=== PATIENT | female | born 1955 | race Caucasian/White ===

== ENCOUNTER 2016-06-12 16:07 | Emergency (ER) | payer OTHER ==
[2016-06-12] MEDS ORDERED: RX INFO: IV CONTRAST WAS GIVEN 1 EACH MISC MISCELLANE PRN (16:23)
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
[2016-06-12 16:44] LABS: Appearance,Urine Clear (Clear); Bilirubin,Urine Negative (Negative); Glucose,Urine (UA) Negative (Negative); Ketones,Urine Negative (Negative); Leukocyte Esterase,Urine Negative (Negative); Nitrite,Urine Negative (Negative); PH, Urine 5.5 (5.0-8.0); Protein,Urine Negative (Negative); Specific Gravity,Urine 1.006 (1.001-1.035); UA Billing (MACRO vs. MICRO) CHEM; Urobilinogen,Urine <2.0 mg/dL (<2.0)
[2016-06-12 16:55] LABS: ALT 56 U/L (9-52); AST 73 U/L (14-36); Anion Gap 13 mmol/L; Blood Urea Nitrogen 21 mg/dL (7-17); Calcium 9.4 mg/dL (8.4-10.2); Carbon Dioxide 25 mmol/L (22-30); Chloride 105 mmol/L (98-107); Glucose 104 mg/dL (74-99); Non-African American GFR(MDRD) >60 (>60 ml/min/1.73 sqM); Potassium 3.7 mmol/L (3.5-5.1); Sodium 143 mmol/L (137-145)
[2016-06-12 17:04] LABS: Partial Thromboplastin Time 22.2 sec (22.0-30.0); Prothrombin Time 10.6 sec (9.0-12.0)
[2016-06-12 17:15] LABS: Anisocytosis Slight; CH 26.8; CHCM 32.4; HDW 3.47; HGB 12.5 gm/dL (11.4-16.0); Hypochromasia Slight; Immature Gran Flag Marked; MCH 26.6 pg (25.0-35.0); MCV 83.2 fL (80.0-100.0); Mean Platelet Volume 7.9; Poikilocytosis Slight; RBC 4.69 m/uL (3.80-5.40); RDW 17.6 % (11.5-15.5); WBC (Perox) 4.58
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
[2016-06-12 17:42] LABS: Add Differential Manual Differential
[2016-06-12 17:49] LABS: Blast Cells 0.5; Myelocytes % 4.5 %; Nucleated Red Blood Cells 3 /100 WBC (0-0); Total Cells Counted 200
[2016-06-12 17:50] LABS: Manual Review Performed; Polychromasia Present; Tear Drop Cells Present; WBC 4.1 k/uL (3.8-10.6)
[2016-06-12 18:13] VITALS: RESP 18
[2016-06-12] MEDS ORDERED: SODIUM CHLORIDE 0.9% 1,000 ML IV STA (18:13)
[2016-06-12 18:31] VITALS: BP 158/82; PULSE 104; TEMP 98
== END 2016-06-12 18:37 | disposition other institution (70) ==
LOC: EC 16:07
DX: S36.039A Unspecified laceration of spleen, initial encounter (principal); R16.1 Splenomegaly, not elsewhere classified; V49.49XA Driver injured in collision with other motor vehicles in traffic accident, initial encounter; Z79.899 Other long term (current) drug therapy; Z88.1 Allergy status to other antibiotic agents; E07.9 Disorder of thyroid, unspecified; Z87.891 Personal history of nicotine dependence
CPT/HCPCS: 36415; 86900; 86901; 80048; 83690; 84450; 84460; 85025; 85610; 85730; 86850; 81003; 74177; 99285; 96360; Q9967

== ENCOUNTER 2016-06-27 14:27 | Emergency (ER) | payer OTHER ==
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
[2016-06-27 15:15] LABS: Anisocytosis Slight; CH 26.7; CHCM 32.5; HCT 36.9 % (34.0-46.0); HDW 3.55; HGB 11.8 gm/dL (11.4-16.0); Hypochromasia Slight; MCH 26.6 pg (25.0-35.0); Mean Platelet Volume 8.1; Poikilocytosis Slight; RBC 4.45 m/uL (3.80-5.40); RDW 17.6 % (11.5-15.5); WBC (Perox) 11.05
[2016-06-27 15:48] LABS: Add Differential Manual Differential
[2016-06-27 15:53] LABS: Metamyelocytes % 5.5 %; Nucleated Red Blood Cells 2 /100 WBC (0-0); Total Cells Counted 200
[2016-06-27 15:54] LABS: Polychromasia Present; Tear Drop Cells Present; WBC 4.1 k/uL (3.8-10.6)
[2016-06-27 16:01] VITALS: BP 135/70; PULSE 70; RESP 16; TEMP 97
[2016-06-27 17:15] LABS: Appearance,Urine Clear (Clear); Bilirubin,Urine Negative (Negative); Glucose,Urine (UA) Negative (Negative); Ketones,Urine Negative (Negative); Leukocyte Esterase,Urine Negative (Negative); Nitrite,Urine Negative (Negative); PH, Urine 6.5 (5.0-8.0); Protein,Urine Negative (Negative); Specific Gravity,Urine 1.002 (1.001-1.035); UA Billing (MACRO vs. MICRO) CHEM; Urobilinogen,Urine <2.0 mg/dL (<2.0)
== END 2016-06-27 16:01 | disposition home or self-care (01) ==
LOC: EC 14:27
DX: R19.7 Diarrhea, unspecified (principal); E07.9 Disorder of thyroid, unspecified; Z86.2 Personal history of diseases of the blood and blood-forming organs and certain disorders involving the immune mechanism; Z87.19 Personal history of other diseases of the digestive system; Z87.891 Personal history of nicotine dependence; Z79.52 Long term (current) use of systemic steroids; Z79.899 Other long term (current) drug therapy; Z88.1 Allergy status to other antibiotic agents; Z90.49 Acquired absence of other specified parts of digestive tract; Z90.710 Acquired absence of both cervix and uterus
CPT/HCPCS: 36415; 81003; 85025; 99284

== ENCOUNTER → 2016-06-30 | Outpatient (CLI) | payer OTHER | END | disposition home or self-care (01) | LOC: LABWHC1 08:09 | PROVIDERS: ATTEND Emergency Medicine | DX: R19.7 Diarrhea, unspecified (principal) | CPT/HCPCS: 80299; 87045; 87046 ==

== ENCOUNTER 2016-08-06 08:38 | Day surgery (SDC) | payer OTHER ==
[2016-08-04 10:36] VITALS: BMI 19.3
[~2016-08-06 08:38] MED LIST: LACTATED RINGERS 1,000 ML IV SCH
[2016-08-06 08:59] VITALS: RESP 16; TEMP 97.3
[2016-08-06] MEDS ORDERED: LIDOCAINE 1% 20 ML VIAL (10MG/ML) FOR IV START INTRADERMA ONE (09:11)
[2016-08-06] MEDS ORDERED: PROPOFOL 10 MG/ML 20 ML VIAL IV ONE (09:40)
[2016-08-06] MEDS ORDERED: LIDOCAINE 1% INJ 10MG/ML (20 ML MDV) ONE (09:40)
--- NOTE | 2016-08-06 10:07 | P.PCN ---
Date of Procedure: 08/06/16 Procedure(s) Performed: BRIEF HISTORY: Patient is a 61-year-old pleasant white female, scheduled for an elective colonoscopy as a part of surveillance of colorectal neoplasia. Her last colonoscopy was in July 2015 and was noted to have cecal mass for which she underwent right hemicolectomy. Lately she is been having occasional diarrhea. PROCEDURE PERFORMED: Colonoscopy. PREOPERATIVE DIAGNOSIS: Surveillance of colon cancer status post right colectomy July 2015. IV sedation per Anesthesia. PROCEDURE: After informed consent was obtained, the patient, was brought into the endoscopy unit. IV conscious sedation was administered by Anesthesia under continuous monitoring. Initially the Olympus CF-160 flexible video colonoscope was then inserted in the rectum, gradually advanced into the right colon be the ileocolonic anastomosis was visualized and appeared normal. The anastomosis was widely patent. The mucosa of the ascending colon, transverse colon, descending colon, sigmoid colon, and rectum appeared normal. Retroflexion was performed in the rectum and no lesions were seen. The patient tolerated the procedure well. IMPRESSION: Normal-appearing colon from rectum to ileocolonic anastomosis of the right side with no evidence of colorectal neoplasia RECOMMENDATIONS: Findings of this examination were discussed with the patient as well as family. She was advised to have a repeat surveillance colonoscopy in 2-3 years.
[2016-08-06 10:40] VITALS: BP 138/82; PULSE 74
--- NOTE | 2016-08-20 11:45 | CDI ---
There is a conflict regarding the sedation used during the procedure. Your procedure note states "IV conscious sedation was administered by Anesthesia", but the Anesthesia Record indicates General Anesthesia. Which type of sedation/ anesthesia was used during the procedure? Please clarify and document as an addendum to your op report. This information is needed for proper coding and billing. If you dont understand what is needed from you, please contact my medical billing and coding instructor, Odalys Laguerre at [phone]. Thank you. MALCOM Dc
--- NOTE | 2016-09-08 13:39 | CDI ---
There is a conflict regarding the sedation used during the procedure. Your procedure note states "IV conscious sedation was administered by Anesthesia", but the Anesthesia Record indicates General Anesthesia. Which type of sedation/ anesthesia was used during the procedure? Please clarify and document as an addendum to your op report. This information is needed for proper coding and billing. If you don't understand what is needed from you, please contact my park manager, Odalys Laguerre at [phone]. Thank you. MALCOM Dc
--- NOTE | 2016-09-19 14:15 | CDI ---
There is a conflict regarding the sedation used during the procedure. Your procedure note states "IV conscious sedation was administered by Anesthesia", but the Anesthesia Record indicates General Anesthesia. Which type of sedation/ anesthesia was used during the procedure? Please clarify and document as an addendum to your op report. This information is needed for proper coding and billing. If you dont understand what is needed from you, please contact my cable installation manager, Odalys Laguerre at [phone]. Thank you. RADHA
--- NOTE | 2016-09-24 11:52 | PCN ---
DATE OF SERVICE: 08/06/2016 ADDENDUM: General anesthesia was utilized instead of IV conscious sedation.
== END 2016-08-06 10:50 | disposition home or self-care (01) ==
LOC: ORWHC2ENDO 08:38
PROVIDERS: ATTEND Internal Medicine Gastroenterology
DX: C18.9 Malignant neoplasm of colon, unspecified (principal); Z90.49 Acquired absence of other specified parts of digestive tract; R19.7 Diarrhea, unspecified; E07.9 Disorder of thyroid, unspecified; Z79.899 Other long term (current) drug therapy; Z88.1 Allergy status to other antibiotic agents
CPT/HCPCS: 45378; J2001; J2704

== ENCOUNTER → 2017-06-01 | Outpatient (CLI) | payer BC ==
--- NOTE | 2017-06-02 09:57 | ECHOF ---
Referral Reason:I35.0 Nonrheumatic Aortic (Valve) Stenosis MEASUREMENTS -------- HEIGHT: 170.2 cm WEIGHT: 58.1 kg BP: IVSd: 1.2 cm (0.6 - 1.1) LVIDd: 4.1 cm (3.9 - 5.3) LVPWd: 1.5 cm (0.6 - 1.1) IVSs: 1.5 cm LVIDs: 2.4 cm LVPWs: 1.6 cm LAESV Index (A-L): 29.70 ml/m Ao Diam: 2.1 cm (2.0 - 3.7) AV Cusp: 1.6 cm (1.5 - 2.6) LA Diam: 3.4 cm (2.7 - 3.8) MV EXCURSION: 5.640 mm (> 18.000) MV EF SLOPE: 56 mm/s (70 - 150) EPSS: 0.7 cm MV E Terrell: 0.75 m/s MV DecT: 220 ms MV A Terrell: 1.10 m/s MV E/A Ratio: 0.69 AV maxP.35 mmHg AV meanP.06 mmHg AR PHT: 268 ms RAP: 15.00 mmHg RVSP: 38.70 mmHg FINDINGS -------- Sinus rhythm. This was a technically good study. The left ventricular size is normal. There is mild concentric left ventricular hypertrophy. Overa ll left ventricular systolic function is normal with, an EF between 55 - 60 %. The right ventricle is normal in size and function. LA is midly dilated 29-33ml/m2. The right atrium is normal in size. Aortic valve is trileaflet and is mildly thickened. There is mild aortic regurgitation. There is mild aortic stenosis present. Peak/mean gradient across the Aortic Valve is 22.35mmHg / 15.06mmHg. Can't exclude possible Bicuspid Aov. The mitral valve leaflets are mildly thickened. Mild mitral annular calcification present. There is trace mitral regurgitation. Trace tricuspid regurgitation present. There is borderline pulmonary hypertension. The right vent ricular systolic pressure, as measured by Doppler, is 38.70mmHg. Pulmonic valve appears structurally normal. The aortic root size is normal. The inferior vena cava is mildly dilated. The pericardium is normal. CONCLUSIONS -------- 1. Sinus rhythm. 2. This was a technically good study. 3. The left ventricular size is normal. 4. There is mild concentric left ventricular hypertrophy. 5. Overall left ventricular systolic function is normal with, an EF between 55 - 60 %. 6. The right ventricle is normal in size and function. 7. LA is midly dilated 29-33ml/m2. 8. The right atrium is normal in size. 9. Aortic valve is trileaflet and is mildly thickened. 10. There is mild aortic regurgitation. 11. There is mild aortic stenosis present. 12. Peak/mean gradient across the Aortic Valve is 22.35mmHg / 15.06mmHg. 13. Can't exclude possible Bicuspid Aov. 14. The mitral valve leaflets are mildly thickened. 15. Mild mitral annular calcification present. 16. There is trace mitral regurgitation. 17. Trace tricuspid regurgitation present. 18. There is borderline pulmonary hypertension. 19. The right ventricular systolic pressure, as measured by Doppler, is 38.70mmHg. 20. Pulmonic valve appears structurally normal. 21. The aortic root size is normal. 22. The inferior vena cava is mildly dilated. 23. The pericardium is normal. CASE INVESTIGATOR: Marie Jane RDCS
== END | disposition home or self-care (01) ==
LOC: RADECHMAIN 16:12
PROVIDERS: ATTEND Internal Medicine
DX: I35.1 Nonrheumatic aortic (valve) insufficiency (principal); I34.8 Other nonrheumatic mitral valve disorders; I27.20 Pulmonary hypertension, unspecified; I51.7 Cardiomegaly
CPT/HCPCS: 93306

== ENCOUNTER → 2017-09-28 | Outpatient (CLI) | payer BC ==
--- NOTE | 2017-09-28 09:24 | BD ---
EXAMINATION TYPE: Axial Bone Density DATE OF EXAM: 09/28/2017 COMPARISON: NONE CLINICAL HISTORY: osteoporosis Height: 5'6 Weight: 127 FRAX RISK QUESTIONS: History of Fracture in Adulthood: y RISK FACTORS HISTORY OF: Family History of Osteoporosis: y Postmenopausal woman: y Take estrogen and/or progesterone medications: y How lon years MEDICATIONS: Thyroid Medications: Which medication: Synthroid How Lon years Additional Medications: colon meds, Additional History: colon cancer , 2016, EXAM MEASUREMENTS: Bone mineral densitometry was performed using the [employer]) System. Bone mineral density as measured about the Lumbar spine is: ----- L1-L4(G/cm2): 1.254 T Score Values are as follows: ----- L2: 0.5 ----- L3: 0.9 ----- L4: 0.5 ----- L1-L4: 0.6 Bone mineral density about the R hip (g/cm2): 1.004 Bone mineral density about the L hip (g/cm2): 1.062 T Score values are as follows: -----R Neck: -0.2 -----L Neck: -0.2 -----R Total: 0.5 -----L Total: 0.5 IMPRESSION: Normal (Values between +1 and -1 indicate normal bone mass). Consider repeating this study in 5 year s or sooner if there is some new clinical indication. NOTE: T-SCORE=SD OF THE YOUNG ADULT MEAN.
== END | disposition home or self-care (01) ==
LOC: RADBDWWP 07:05
PROVIDERS: ATTEND Internal Medicine
DX: M81.0 Age-related osteoporosis without current pathological fracture (principal)
CPT/HCPCS: 77080

== ENCOUNTER 2018-03-12 15:13 | Emergency (ER) | payer BC ==
[2018-03-12 15:30] VITALS: RESP 18
--- NOTE | 2018-03-12 16:31 | ED ---
General Adult HPI - General Chief complaint: Extremity Injury, Lower Stated complaint: Knee Injury Time Seen by Provider: 03/12/18 15:36 Source: patient, RN notes reviewed Mode of arrival: ambulatory Limitations: no limitations - History of Present Illness Initial comments: Patient is a 62 year old female with history of essential thrombocythemia with complaint of right knee and right calf pain and swelling after she fell 4 days ago. She tripped and hit her knee. She then drove to [place] from [place]. She went to [facility] where she reports that they took an x-ray and was told she has a contusion to her knee, but she is worried she might have a blood clot. She has never had a blood clot before. She does use Estrace cream. No other hormone use. No recent surgeries or bed rest. She reports that her platelet count has been normal. Patient denies head trauma, loss of consciousness, fever, chills, shortness of breath, chest pain, back pain, abdominal pain, numbness or tingling, headaches or visual changes, or any other complaints. - Related Data Home Medications Medication Instructions Recorded Confirmed Levothyroxine Sodium [Synthroid] 125 mcg PO QAM 07/27/15 08/06/16 Multivitamins, Thera [Multivitamin 1 tab PO AC-SUPPER 07/27/15 08/06/16 (formulary)] Estradiol Cream [Estrace Cream 1 applic VAGINAL WESA 08/01/15 08/06/16 0.01%] Glucosamine/Chondr Eckert A Sod [Osteo 1 tab PO AC-SUPPER 08/01/15 08/06/16 Bi-Flex Caplet] Calcium Carbonate [Calcium] 600 mg PO AC-SUPPER 06/27/16 08/06/16 Folic Acid 0.8 mg PO AC-SUPPER 06/27/16 08/06/16 Allergies Allergy/AdvReac Type Severity Reaction Status Date / Time erythromycin base Allergy Rash/Hives Verified 03/12/18 15:30 Review of Systems ROS Statement: Those systems with pertinent positive or pertinent negative responses have been documented in the HPI. ROS Other: All systems not noted in ROS Statement are negative. Past Medical History Past Medical History: Cancer, Thyroid Disorder Additional Past Medical History / Comment(s): heart murmur; enl. spleen/ platelet disorder/anemia, spleen laceration History of Any Multi-Drug Resistant Organisms: None Reported Past Surgical History: Breast Surgery, Cholecystectomy, Hysterectomy, Tonsillectomy Additional Past Surgical History / Comment(s): colonoscopy Past Anesthesia/Blood Transfusion Reactions: No Reported Reaction Past Psychological History: No Psychological Hx Reported Smoking Status: Former smoker - Past Family History Mother Family Medical History: No Reported History General Exam Limitations: no limitations General appearance: alert, in no apparent distress Head exam: Present: atraumatic, normocephalic Eye exam: Present: normal appearance Respiratory exam: Present: normal lung sounds bilaterally Cardiovascular Exam: Present: regular rate, normal rhythm, other (DP and PT pulses palpable and strong bilaterally.) Extremities exam: Present: full ROM, normal capillary refill, joint swelling ( Mild right ankle swelling.), calf tenderness (Right calf tenderness to palpation.), other (No tenderness of the right knee with palpation.) Neurological exam: Present: alert, oriented X3 Psychiatric exam: Present: normal affect, normal mood Skin exam: Present: warm, dry, normal color (No erythema over calves.) Course Vital Signs 03/12/18 15:28 Temperature 97.7 F Pulse Rate 78 Respiratory 18 Rate Blood Pressure 160/80 O2 Sat by Pulse 98 Oximetry Medical Decision Making - Medical Decision Making This is a 62 year old female with right calf pain after she fell and hit her knee. She reports that she has had an x-ray taken of her right knee, which had a contusion. US Venous Doppler Duplex of the right lower extremity was negative for DVT. Case discussed in detail with attending physician Dr. Nolan. Disposition Clinical Impression: Pain of right calf Disposition: HOME SELF-CARE Condition: Good Instructions: Knee Pain (ED) Additional Instructions: Follow up with PCP in 2 days. Return to emergency department if symptoms worsen or any other concerns. Is patient prescribed a controlled substance at d/c from ED?: No Referrals: Saulo Kim MD [Primary Care Provider] - 1-2 days Time of Disposition: 18:14
--- NOTE | 2018-03-12 17:53 | US ---
EXAMINATION TYPE: US venous doppler duplex LE RT DATE OF EXAM: 03/12/2018 5:40 PM COMPARISON: NONE CLINICAL HISTORY: Pain. SIDE PERFORMED: Right TECHNIQUE: The lower extremity deep venous system is examined utilizing real time linear array sonog makeda with graded compression, doppler sonography and color-flow sonography. VESSELS IMAGED: External Iliac Vein (EIV) Common Femoral Vein Deep Femoral Vein Greater Saphenous Vein * Femoral Vein Popliteal Vein Small Saphenous Vein * Proximal Calf Veins (* superficial vessels) Right Leg: Negative for DVT IMPRESSION: No evidence of deep venous thrombosis in the right leg.
[2018-03-12 18:53] VITALS: BP 150/70; PULSE 82; TEMP 97
== END 2018-03-12 18:52 | disposition home or self-care (01) ==
LOC: EC 15:13
DX: M79.661 Pain in right lower leg (principal); M79.89 Other specified soft tissue disorders; M25.561 Pain in right knee; E07.9 Disorder of thyroid, unspecified; D64.9 Anemia, unspecified; Z87.891 Personal history of nicotine dependence; Z88.1 Allergy status to other antibiotic agents; Z79.899 Other long term (current) drug therapy
CPT/HCPCS: 99283

== ENCOUNTER → 2018-06-14 | Outpatient (CLI) | payer BC ==
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
--- NOTE | 2018-06-14 18:21 | ECHOF ---
Referral Reason:R16.1 Splenomegaly,I35 Nonrheumatic aortic valve MEASUREMENTS -------- HEIGHT: 167.6 cm WEIGHT: 56.2 kg BP: IVSd: 1.2 cm (0.6 - 1.1) LVIDd: 4.1 cm (3.9 - 5.3) LVPWd: 1.4 cm (0.6 - 1.1) IVSs: 1.7 cm LVIDs: 2.1 cm LVPWs: 1.8 cm RVIDd: 2.6 cm (< 3.3) LAESV Index (A-L): 27.51 ml/m Ao Diam: 1.9 cm (2.0 - 3.7) LA Diam: 3.4 cm (2.7 - 3.8) AV Cusp: 1.2 cm (1.5 - 2.6) EPSS: 0.2 cm MV E Terrell: 0.74 m/s MV DecT: 260 ms MV A Terrell: 0.88 m/s MV E/A Ratio: 0.84 AV maxP.91 mmHg AV meanP.91 mmHg AR PHT: 221 ms RAP: 5.00 mmHg RVSP: 21.28 mmHg MV EF SLOPE: 96.95 mm/s (70 - 150) MV EXCURSION: 18.61 mm (> 18.000) FINDINGS -------- Sinus rhythm. This was a technically good study. The left ventricular size is normal. There is mild concentric left ventricular hypertrophy. Overa ll left ventricular systolic function is normal with, an EF between 55 - 60 %. The right ventricle is normal in size and function. The left atrial size is normal. The right atrium is normal in size. Aortic valve is trileaflet and is moderately thickened. There is mild aortic regurgitation. There is mild to mod aortic stenosis present. Peak/mean gradient across the Aortic Valve is 30.91mmHg / 1 7.91mmHg. Can't exclude possible Bicuspid Aov. The mitral valve leaflets are mildly thickened. Mild mitral regurgitation is present. Mild tricuspid regurgitation present. The right ventricular systolic pressure, as measured by Doppl er, is 21.28mmHg. Pulmonic valve appears structurally normal. The aortic root size is normal. Normal inferior vena cava with normal inspiratory collapse consistent with estimated right atrial pre ssure of 5 mmHg. The pericardium is normal. CONCLUSIONS -------- 1. Sinus rhythm. 2. This was a technically good study. 3. The left ventricular size is normal. 4. There is mild concentric left ventricular hypertrophy. 5. Overall left ventricular systolic function is normal with, an EF between 55 - 60 %. 6. The right ventricle is normal in size and function. 7. The left atrial size is normal. 8. The right atrium is normal in size. 9. Aortic valve is trileaflet and is moderately thickened. 10. There is mild aortic regurgitation. 11. There is mild to mod aortic stenosis present. 12. Peak/mean gradient across the Aortic Valve is 30.91mmHg / 17.91mmHg. 13. Can't exclude possible Bicuspid Aov. 14. The mitral valve leaflets are mildly thickened. 15. Mild mitral regurgitation is present. 16. Mild tricuspid regurgitation present. 17. The right ventricular systolic pressure, as measured by Doppler, is 21.28mmHg. 18. Pulmonic valve appears structurally normal. 19. The aortic root size is normal. 20. Normal inferior vena cava with normal inspiratory collapse consistent with estimated right atrial pressure of 5 mmHg. 21. The pericardium is normal. SVP: Marie Jane RDCS
== END | disposition home or self-care (01) ==
LOC: RADECHMAIN 13:38
PROVIDERS: ATTEND Internal Medicine
DX: I08.3 Combined rheumatic disorders of mitral, aortic and tricuspid valves (principal); N20.0 Calculus of kidney; R16.1 Splenomegaly, not elsewhere classified
CPT/HCPCS: 76700; 93306

== ENCOUNTER → 2018-07-05 | Outpatient (CLI) | payer BC ==
--- NOTE | 2018-07-06 05:05 | CT ---
EXAMINATION TYPE: CT abdomen w con DATE OF EXAM: 07/05/2018 COMPARISON: Ultrasound 06/14/[address] 06/12/2016 HISTORY: 63-year-old female Splenomegaly. TECHNIQUE: Contiguous axial scanning of the abdomen and pelvis following administration of 100 ml Iso bowen 300 IV contrast. Delayed images through the kidneys and coronal/sagittal reconstructions perform ed. CT DLP: 309 mGycm Automated exposure control for dose reduction was used. FINDINGS: Heart normal size without pericardial effusion. Lung bases clear without pleural effusion. The liver is enlarged measuring 20.1 cm. There is also large caliber to the main portal vein at 1.9 c m in the splenic vein adult 2.0 cm. The portal venous system appears patent. Cholecystectomy clips. No biliary ductal dilatation seen. Adrenal glands, kidneys, and pancreas show no gross abnormality. Some surgical changes in the region of the ileocecal junction. The spleen is severely enlarged measuring up to 26.3 cm craniocaudal. A rounded enhancing soft tissue nodule anteriorly and laterally at the mid aspect measures 3.4 cm, not significantly changed from . At that time, the spleen measured 25.0 cm. The previously seen inferior pole lacerations hav e healed. No dilated small bowel, free fluid, or free air. No evident mesenteric or retroperitoneal lymphadenop athy. Bones: Diffuse heterogeneity of the osseous structures is unchanged. IMPRESSION: 1. SEVERE SPLENOMEGALY AT 26.3 CM STABLE TO SLIGHTLY INCREASED FROM 06/12/2016 (25.0 CM). 2. STABLE ENHANCING ROUND 2.4 CM SOFT TISSUE NODULE/MASS ALONG THE ANTEROLATERAL MID POLE OF THE SPLE EN. THE PREVIOUS LOWER POLE LACERATIONS HAVE HEALED. NO ACUTE SPLENIC INJURY IDENTIFIED AT THIS TIME. 3. HEPATOMEGALY (20.1 CM). 4. LARGE CALIBER TO THE PORTAL VENOUS SYSTEM SUGGESTS UNDERLYING PORTAL VENOUS HYPERTENSION. 5. STABLE DIFFUSE HETEROGENEITY OF THE OSSEOUS STRUCTURES. CORRELATE TO ANY KNOWN ETIOLOGY. METABO LIC AND INFILTRATIVE PROCESSES ARE IN THE DIFFERENTIAL.
== END | disposition home or self-care (01) ==
LOC: RADCTMAIN 15:24
PROVIDERS: ATTEND Internal Medicine
DX: D73.89 Other diseases of spleen (principal); R16.2 Hepatomegaly with splenomegaly, not elsewhere classified
CPT/HCPCS: 74160; Q9967

== ENCOUNTER → 2018-07-30 | Day surgery (SDC) | payer BC ==
[2018-07-28 09:35] VITALS: BMI 18.8
[~2018-07-30] MED LIST changes: +LIDOCAINE 1% 20 ML VIAL (10MG/ML) FOR IV START INTRADERMA PRN; +LIDOCAINE 1% INJ 10MG/ML (20 ML MDV) ONE; +PROPOFOL 10 MG/ML 20 ML VIAL IV ONE
[2018-07-30 08:56] VITALS: RESP 16; TEMP 98.4
--- NOTE | 2018-07-30 09:36 | P.PCN ---
Date of Procedure: 07/30/18 Procedure(s) Performed: BRIEF HISTORY: Patient is a 63-year-old pleasant female, scheduled for an elective colonoscopy as a part of surveillance of prior history of colon cancer diagnosed in July 2015 and is status post right hemicolectomy. PROCEDURE PERFORMED: Colonoscopy. PREOPERATIVE DIAGNOSIS: Surveillance of colon cancer. IV sedation per Anesthesia. PROCEDURE: After informed consent was obtained, the patient, was brought into the endoscopy unit. IV sedation was administered by Anesthesia under continuous monitoring. Digital rectal examination was normal. Initially the Olympus CF-160 flexible video colonoscope was then inserted in the rectum, gradually advanced into the cecum without any difficulty. Careful examination was performed as the scope was gradually being withdrawn. Ileocecal valve and the appendiceal orifice were visualized and appeared normal. Prep was excellent. Mucosa of the cecum, ascending colon, transverse colon, descending colon, sigmoid colon, and rectum appeared normal. Small internal hemorrhoids Retroflexion was performed in the rectum and no lesions were seen. The patient tolerated the procedure well. IMPRESSION: Normal-appearing colon from rectum to cecum with no evidence of colorectal neoplasia. Small internal hemorrhoids. RECOMMENDATIONS: Findings of this examination were discussed with the patient as well as her family. She was advised to have a repeat surveillance colonoscopy in 3 years.
[2018-07-30 09:57] VITALS: BP 123/68; PULSE 75
== END ==
LOC: ORWHC2ENDO 08:05
PROVIDERS: ATTEND Internal Medicine Gastroenterology
DX: Z12.11 Encounter for screening for malignant neoplasm of colon (principal); K64.8 Other hemorrhoids; Z85.038 Personal history of other malignant neoplasm of large intestine; Z90.49 Acquired absence of other specified parts of digestive tract; E07.9 Disorder of thyroid, unspecified; Z87.891 Personal history of nicotine dependence; Z79.890 Hormone replacement therapy; Z79.899 Other long term (current) drug therapy; Z88.1 Allergy status to other antibiotic agents
CPT/HCPCS: J2001; J2704; G0105

== ENCOUNTER → 2018-08-12 | Outpatient (CLI) | payer BC ==
--- NOTE | 2018-08-12 10:13 | CT ---
EXAMINATION TYPE: CT angio chest DATE OF EXAM: 08/12/2018 COMPARISON: 08/01/2015 and 08/01/2015 HISTORY: 63-year-old female Thoracic aortic aneurysm TECHNIQUE: Contiguous axial scanning of the chest performed with IV Contrast, patient injected with 1 00 mL of Isovue 370. Coronal/sagittal MIP reconstructions performed. 3-D reconstructions generated on a dedicated independent workstation. CT DLP: 182.5 mGycm Automated exposure control for dose reduction was used. FINDINGS: Heart normal size without pericardial. The aortic root measures 2.6 cm. Proximal ascending aorta measures 3.0 cm. Proximal arch measures 3.1 cm. Conventional arterial vessel branching anatomy. Upper descending thoracic aorta measures 2.8 cm. There seems to be bilateral accessory renal arteries. Dilated splenic artery. No evidence for aortic dissection. No thoracic lymphadenopathy by CT size criteria. No consolidation or pleural effusion. Massive enlargement of the spleen is redemonstrated. Mottled enhancement compatible with arterial pha se imaging. However, there is a round 2.9 cm hypodense area anteriorly at the upper to mid pole not w ell seen on 07/05/2018 or 08/01/2015. An additional partially visualized hypodense area posteriorly and inferiorly measures 4.5 cm versus 1.8 cm on 08/01/2015 and in retrospect possibly measuring 3.3 cm on 07/05/2018, again, not well seen. Bones: Heterogeneous density of the osseous structures redemonstrated. IMPRESSION: 1. NO EVIDENCE FOR THORACIC AORTIC ANEURYSM. NO AORTIC DISSECTION. 2. NO ACUTE PULMONARY PROCESS. 3. MASSIVE ENLARGEMENT OF THE SPLEEN REDEMONSTRATED, ONLY PARTIALLY VISUALIZED ON THE PRESENT STUDY. THERE ARE A COUPLE ROUND HYPODENSE LESIONS MEASURING UP TO 4.5 CM, NOT WELL-SEEN ON THE 07/05/2018 STUDY AND MAY BE LARGER FROM 08/01/2015. CORRELATE FOR ANY KNOWN DIAGNOSIS THIS SPLENOMEGALY SEEMS TO BE A LONG-STANDING PROCESS. CONSIDER HEME-ONC REFERRAL FOR FURTHER WORKUP IF NO ESTABLISHED DIAGN OSIS. GIVEN THE UNDERLYING HYPODENSE LESIONS, CORRELATE TO EXCLUDE THE POSSIBILITY OF LYMPHOMA. 4. HETEROGENEOUS APPEARANCE TO THE OSSEOUS STRUCTURES ALSO APPEARS TO BE A LONG-STANDING PROCESS AND MAY BE RELATED. AGAIN, FURTHER WORKUP FOR POTENTIAL INFILTRATIVE OR METABOLIC PROCESSES IF NO ESTABLI SHED DIAGNOSIS.
== END | disposition home or self-care (01) ==
LOC: RADCTMAIN 08:13
PROVIDERS: ATTEND Internal Medicine Interventional Cardiology
DX: R16.1 Splenomegaly, not elsewhere classified (principal)
CPT/HCPCS: 71275; Q9967

== ENCOUNTER → 2019-01-06 | Outpatient (CLI) | payer BC ==
--- NOTE | 2019-01-06 16:23 | US ---
EXAMINATION TYPE: US abdomen complete DATE OF EXAM: 01/06/2019 COMPARISON: NONE CLINICAL HISTORY: R16.1 SPLENOMEGALY. Splenomegaly, elevated liver enzymes, cholecystectomy, platelet disorder, history of splenic injury EXAM MEASUREMENTS: Liver Length: 19.6 cm Gallbladder Wall: Surgically absent CBD: 1.1 cm Spleen: 21.7 cm Right Kidney: 10.0 x 3.5 x 4.8 cm Left Kidney: 9.8 x 2.7 x 4.5 cm Pancreas: Obscured by bowel gas Liver: enlarged, portal vein = 2.0cm Gallbladder: Surgically absent Evidence for sonographic Solis's sign: no CBD: wnl Spleen: enlarged with hyperechoic area = 5.6 x 4.7 x 5.1cm Right Kidney: no evidence of hydronephrosis Left Kidney: no evidence of hydronephrosis Upper IVC: wnl Abd Aorta: visualized portions appear wnl, bifurcation obscured IMPRESSION: 1. Splenomegaly. 2. Slightly hyperechoic irregular masslike area within the spleen measuring 5.6 x 4.7 x 5.1 cm. Heman gioma could be considered. Additional workup is recommended.
== END | disposition home or self-care (01) ==
LOC: RADUSWWP 08:45
PROVIDERS: ATTEND Internal Medicine Hematology & Oncology
DX: R16.1 Splenomegaly, not elsewhere classified (principal); Z88.1 Allergy status to other antibiotic agents
CPT/HCPCS: 76700

== ENCOUNTER → 2020-05-25 | Day surgery (SDC) | payer BC ==
[2020-05-22 14:11] VITALS: BMI 18.3
[~2020-05-25] MED LIST changes: -LIDOCAINE 1% 20 ML VIAL (10MG/ML) FOR IV START INTRADERMA PRN
[2020-05-25 08:09] VITALS: TEMP 98.6
--- NOTE | 2020-05-25 09:14 | P.PCN ---
Date of Procedure: 05/25/20 Procedure(s) Performed: Brief history: Patient is a pleasant 64-year-old white female scheduled for an elective upper endoscopy as well as colonoscopy as a part of evaluation of evaluation of iron deficiency anemia. She was diagnosed with colon cancer in July 2015 status post right hemicolectomy. Procedure performed: Esophagogastroduodenoscopy with biopsy Colonoscopy Preoperative diagnosis: Iron deficiency anemia History of colon cancer in July 2015 status post right hemicolectomy Anesthesia: MAC Procedure: After informed consent was obtained from the patient was brought into the endoscopy unit and IV sedation was administered by anesthesia under continuous monitoring. Initially upper endoscopy was done. The Olympus GF 160 video endoscope was inserted inserted into the mouth and esophagus intubated without any difficulty and was gradually advanced into the stomach and duodenum and carefully examined. The bulb and second part of the duodenum appeared normal. Biopsies were done from the duodenum to rule out celiac disease. The scope was then withdrawn into the stomach adequately insufflated with air and upon careful examination the antrum had diffuse gastritis and biopsies were done from this area. The body, cardia and fundus appeared normal. The scope was then wi thdrawn into the esophagus. The GE junction was located at 40 cm to the incisors. It appeared regular with no erosions consistent with LA grade B reflux esophagitis.. Rest of the esophagus appeared normal. Patient tolerated the procedure well. At this time the patient continued to remain sedation. Initial digital rectal examination was normal. Olympus CF 160 video colonoscope was then inserted into the rectum and gradually advanced to the ileocolonic anastomosis without any difficulty. Careful examination was performed as the scope was gradually being withdrawn. The prep was excellent. The anastomosis,, transverse colon, descending colon, sigmoid colon and rectum appeared normal. Retroflexion was performed in the rectum and no lesions were noted. Patient tolerated the procedure well. Impression: 1. Upper endoscopy revealed diffuse antral gastritis and LA grade B reflux esophagitis 2. Colonoscopy was essentially within normal limits with no evidence of colorectal neoplasia. Recommendations: Findings of this examination were discussed with the patient as well as her family. She was advised to follow with the biopsy results. She can have a repeat surveillance colonoscopy in 3 years.
[2020-05-25 09:18] VITALS: RESP 17
[2020-05-25 09:33] VITALS: BP 110/72; PULSE 66
== END ==
LOC: ORWHC2ENDO 07:38
PROVIDERS: ATTEND Internal Medicine Gastroenterology
DX: K29.70 Gastritis, unspecified, without bleeding (principal); K21.00 Gastro-esophageal reflux disease with esophagitis, without bleeding; D50.9 Iron deficiency anemia, unspecified; Z85.038 Personal history of other malignant neoplasm of large intestine; Z90.49 Acquired absence of other specified parts of digestive tract; Z90.710 Acquired absence of both cervix and uterus; Z79.82 Long term (current) use of aspirin; Z79.899 Other long term (current) drug therapy; E07.9 Disorder of thyroid, unspecified; Z88.1 Allergy status to other antibiotic agents
CPT/HCPCS: 88305; 45378; 43239; J2001; J2704

== ENCOUNTER → 2021-07-23 | Outpatient (CLI) | payer MEDICARE ==
--- NOTE | 2021-07-23 15:03 | XR ---
Bilateral hands HISTORY: Pain 3 views of each hand submitted, correlation to prior right hand 07/25/2014 Bone mineralization, joint spaces and alignment are maintained. There is some mild subluxation noted at the first metacarpophalangeal joint similar to prior exam the right hand and also present on the l eft. Some subchondral sclerosis is present at the metacarpophalangeal joints of the first digits bila terally. IMPRESSION: Some mild osteoarthritic change present at the metacarpophalangeal joints of the first di gits
== END | disposition home or self-care (01) ==
LOC: RADXRMAIN 14:05
PROVIDERS: ATTEND Internal Medicine Hematology & Oncology
DX: M19.041 Primary osteoarthritis, right hand (principal); M19.042 Primary osteoarthritis, left hand; D75.81 Myelofibrosis

== ENCOUNTER → 2022-09-12 | Outpatient (CLI) | payer MEDICARE | END | disposition home or self-care (01) | LOC: LABWHC1 07:42 | PROVIDERS: ATTEND Orthopaedic Surgery | DX: M25.571 Pain in right ankle and joints of right foot (principal) | CPT/HCPCS: 36415; 82306 ==

== ENCOUNTER → 2022-10-27 | Outpatient (CLI) | payer MEDICARE | END | disposition home or self-care (01) | LOC: LABWHC1 07:10 | PROVIDERS: ATTEND Orthopaedic Surgery | DX: M25.571 Pain in right ankle and joints of right foot (principal); E55.9 Vitamin D deficiency, unspecified | CPT/HCPCS: 36415; 82306 ==